=== PATIENT | male | born 1980 | race Hispanic/Latino ===

== ENCOUNTER 2017-05-20 00:16 | Emergency (ER) | payer OTHER | END 2017-05-20 01:45 | disposition left against medical advice (07) | LOC: EDH 00:16 | DX: Z53.21 Procedure and treatment not carried out due to patient leaving prior to being seen by health care provider (principal); I10 Essential (primary) hypertension | CPT/HCPCS: 99281 ==

== ENCOUNTER 2019-10-28 20:18 | Inpatient (IN) | payer OTHER ==
[~2019-10-28] VITALS: Ht 180.3 cm; Wt 96.6 kg
[2019-10-29] MEDS ORDERED: ACETAMINOPHEN EXTRA STRENGTH 500 MG TABLET ONE (00:26)
[2019-10-29] MEDS ORDERED: POTASSIUM CHLORIDE 10% ELIXIR 20 MEQ/15 ML UDCUP PO PRN (03:45)
[2019-10-29] MEDS ORDERED: MAGNESIUM 2GM PREMIX 50ML 50 ML IV PRN (03:45)
[2019-10-29] MEDS ORDERED: DOXYCYCLINE 100MG+NS 250ML IV SCH (03:45)
[2019-10-29] MEDS ORDERED: ERGOCALCIFEROL (VITAMIN D2) 50,000 UNIT CAPSULE PO ONE (03:45)
[2019-10-29] MEDS ORDERED: GUAIFENESIN-DM 200/20 MG 10 ML PO PRN (03:45)
[2019-10-29] MEDS ORDERED: ACETAMINOPHEN 325 MG TAB PO PRN ×2 (03:45)
[2019-10-29] MEDS ORDERED: POTASSIUM CHLORIDE 20 MEQ ERTAB PO PRN (03:45)
[2019-10-29] MEDS ORDERED: ONDANSETRON HCL 4 MG/2 ML VIAL IV PRN (03:45)
[2019-10-29] MEDS ORDERED: LIDOCAINE HCL-MPF 1% 2ML VIAL IV PRN (03:45)
[2019-10-29] MEDS ORDERED: POTASSIUM CHLORIDE 20MEQ/100ML 100 ML IV PRN ×2 (03:45→10:30)
[2019-10-29] MEDS ORDERED: CEFTRIAXONE SODIUM 1 GM IVP SCH (05:30)
[2019-10-29] MEDS ORDERED: DOXYCYCLINE 100MG+NS 250ML 250 ML IV SCH (06:00)
[2019-10-29] MEDS ORDERED: DOXYCYCLINE HYCLATE 100 MG TABLET PO ONE ×2 (06:40→13:13)
[2019-10-29] MEDS ORDERED: ERGOCALCIFEROL (VITAMIN D2) 50,000 UNIT CAPSULE ONE ×2 (06:41→13:13)
[2019-10-29] MEDS ORDERED: CEFTRIAXONE SODIUM 1 GM ONE ×2 (06:41→13:13)
[2019-10-29] MEDS ORDERED: ONDANSETRON HCL 4 MG/2 ML VIAL ONE (07:28)
[2019-10-29] MEDS ORDERED: METHYLPREDNISOLONE SOD SUCC 40MG/ML 1ML IVP SCH (09:00)
[2019-10-29] MEDS ORDERED: FAMOTIDINE/PF 20 MG/2 ML VIAL IV SCH (09:00)
[2019-10-29] MEDS: ENOXAPARIN SODIUM 40 MG/0.4 ML SYRINGE SQ SCH (09:00)
[2019-10-29] MEDS: ASCORBIC ACID 500 MG TAB PO SCH (09:00)
[2019-10-29] MEDS: ZINC SULFATE 220 CAPSULE PO SCH (09:00)
[2019-10-29] MEDS ORDERED: ASCORBIC ACID 500 MG TAB ONE (09:03)
[2019-10-29] MEDS ORDERED: METHYLPREDNISOLONE SOD SUCC 40MG/ML 1ML ONE ×2 (09:03→16:31)
[2019-10-29] MEDS ORDERED: ENOXAPARIN SODIUM 40 MG/0.4 ML SYRINGE SQ ONE (09:04)
[2019-10-29] MEDS ORDERED: FAMOTIDINE/PF 20 MG/2 ML VIAL IV ONE (09:04)
[2019-10-29] MEDS ORDERED: ZINC SULFATE 220 CAPSULE ONE (09:04)
[2019-10-29] MEDS ORDERED: TRAMADOL HCL 50 MG TABLET ONE (11:09)
[2019-10-29] MEDS ORDERED: INSULIN HUMULIN R 100 UNIT/ML 3ML SQ SCH ×2 (11:30)
[2019-10-30] MEDS: ZINC SULFATE 220 CAPSULE PO SCH (09:00)
[2019-10-30] MEDS: ENOXAPARIN SODIUM 40 MG/0.4 ML SYRINGE SQ SCH (09:00)
[2019-10-30] MEDS: ASCORBIC ACID 500 MG TAB PO SCH (09:00)
[2019-10-30] MEDS ORDERED: FAMOTIDINE/PF 20 MG/2 ML VIAL IV ONE (09:25)
[2019-10-30] MEDS ORDERED: ENOXAPARIN SODIUM 60 MG/0.6 ML SQ ONE (10:47)
[2019-10-30] MEDS ORDERED: ZINC SULFATE 220 CAPSULE ONE (10:48)
[2019-10-30] MEDS ORDERED: ASCORBIC ACID 500 MG TAB ONE (10:48)
[2019-10-30] MEDS ORDERED: CEFTRIAXONE SODIUM 1 GM IVP SCH (12:45)
[2019-10-30] MEDS ORDERED: PHARMACY COMMUNICATION MISC SCH (13:30)
[2019-10-30] MEDS ORDERED: DEXAMETHASONE 4 MG TAB PO SCH (14:22)
[2019-10-30] MEDS ORDERED: CEFTRIAXONE SODIUM 1 GM ONE (15:43)
[2019-10-30] MEDS ORDERED: DEXAMETHASONE 4 MG TAB ONE ×2 (15:44→22:43)
[2019-10-30] MEDS ORDERED: SODIUM CHLORIDE 0.9% 100 ML IV ONE (15:46)
[2019-10-30] MEDS ORDERED: TRAMADOL HCL 50 MG TABLET ONE (18:11)
--- NOTE | 2019-10-30 18:27 | NUR ---
EMERGENCY CONTACT Di Villaseñorezma, spouse, [phone]
--- NOTE | 2019-10-30 18:30 | NUR ---
INITIAL SW spoke with patient. He states he lives with spouse, Di Rutledge, [phone]. No home services or DME. Patient works radio time sales supervisor. He is independent in completing ADL's and drives. PCP is MD at [facility]. Pharmacy is [facility] located on [address] in [place]. DCP is home. Addendum: 10/30/19 at 1831 by [facility] CA SS Amended: Links added.
[2019-10-30] MEDS ORDERED: DOXYCYCLINE HYCLATE 100 MG TABLET PO SCH (21:00)
[2019-10-30] MEDS ORDERED: METHYLPREDNISOLONE SOD SUCC 40MG/ML 1ML IVP SCH (21:00)
[2019-10-30] MEDS ORDERED: FAMOTIDINE 20MG TAB 20 MG TAB PO SCH (21:00)
[2019-10-30] MEDS ORDERED: METHYLPREDNISOLONE SOD SUCC 125MG/2ML VIAL ONE (21:22)
[2019-10-30] MEDS ORDERED: FAMOTIDINE 20MG TAB 20 MG TAB ONE (21:22)
[2019-10-31] MEDS ORDERED: CEFTRIAXONE SODIUM 1 GM ONE (02:57)
[2019-10-31] MEDS ORDERED: DEXAMETHASONE 4 MG TAB PO SCH (09:00)
[2019-10-31] MEDS ORDERED: FAMOTIDINE 20MG TAB 20 MG TAB ONE (10:28)
[2019-10-31] MEDS ORDERED: DEXAMETHASONE SOD PHOSPHATE 10MG/ML 1ML VIAL ONE (10:28)
[2019-10-31] MEDS ORDERED: ENOXAPARIN SODIUM 40 MG/0.4 ML SYRINGE SQ ONE (10:29)
[2019-10-31] MEDS ORDERED: ZINC SULFATE 220 CAPSULE ONE (10:29)
[2019-10-31] MEDS ORDERED: ASCORBIC ACID 500 MG TAB ONE (11:42)
[2019-10-31] MEDS ORDERED: DOXYCYCLINE HYCLATE 100 MG TABLET PO ONE (11:42)
[2019-10-31] MEDS ORDERED: INSULIN HUMULIN R 100 UNIT/ML 3ML ONE (17:36)
== END 2019-10-31 18:42 | disposition home or self-care (01) | DRG 177 ==
LOC: EDH 20:18 → EDHIP 10-29 03:42
PROVIDERS: ADMIT Internal Medicine; ATTEND Internal Medicine
DX: U07.1 COVID-19 (principal); J12.89 Other viral pneumonia; A08.39 Other viral enteritis; I10 Essential (primary) hypertension; E66.9 Obesity, unspecified; Z68.29 Body mass index [BMI] 29.0-29.9, adult; Z88.8 Allergy status to other drugs, medicaments and biological substances; Z91.010 Allergy to peanuts; Z90.49 Acquired absence of other specified parts of digestive tract; Z87.891 Personal history of nicotine dependence

== ENCOUNTER 2020-02-09 17:38 | Emergency (ER) | payer OTHER ==
[~2020-02-09 17:38] MED LIST: DEXA6TAB PO
[2020-02-09 18:14] LABS: BASOPHILS % (AUTO) 0.2 % (0.0-5.0); EOSINOPHILS % (AUTO) 0.2 % (0.0-8.0); HEMATOCRIT 42.4 % (42-54); LYMPHOCYTES % (AUTO) 8.6 % (21.0-51.0); MEAN CORPUSCULAR HEMOGLOBIN 28.3 pg (27.0-33.0); MEAN CORPUSCULAR HGB CONC 33.3 g/dL (32.0-36.0); MEAN CORPUSCULAR VOLUME 85.1 fL (79-99); MONOCYTES % (AUTO) 5.4 % (3.0-13.0); NEUTROPHILS % (AUTO) 84.7 % (40.0-77.0); PLATELET COUNT (AUTO) 432 K/uL (130-400); RED BLOOD CELL COUNT(AUTO) 4.98 MIL/uL (4.50-6.20); RED CELL DISTRIBUTION WIDTH 13.1 % (11.0-15.5); WHITE BLOOD COUNT (AUTO) 18.2 K/uL (4.8-10.8)
[2020-02-09 18:32] LABS: POTASSIUM 4.2 mmol/L (3.5-5.1)
[2020-02-09 18:36] LABS: ALBUMIN 4.1 g/dL (3.5-5.0); BILIRUBIN,TOTAL 0.2 mg/dL (0.2-1.0); TOTAL PROTEIN, SERUM 8.5 g/dL (6.0-8.3)
[2020-02-09] MEDS ORDERED: IOHEXOL-350 75 ML VIAL IV ONE (18:36)
== END 2020-02-09 20:32 | disposition home or self-care (01) ==
LOC: EDH 17:38
DX: R06.00 Dyspnea, unspecified (principal); R00.0 Tachycardia, unspecified; I10 Essential (primary) hypertension; Z87.891 Personal history of nicotine dependence
CPT/HCPCS: 36415; 71045; 71275; 80053; 83880; 84484; 85025; 93005; 99285; Q9967